=== PATIENT | female | born 2000 | race African-American/Black ===

== ENCOUNTER 2021-12-01 17:33 | Emergency (ER) | payer OTHER, MEDICAID, SELFPAY ==
[2021-12-01] VITALS (32 sets, daily range): BP systolic 109–129; BP diastolic 63–84; PULSE 71–97; RESP 13–20; TEMP 36.4; O2SAT 98–100
--- NOTE | ~2021-12-01 | XR_ITS ---
EXAMINATION: XR chest 1V portable Exam Date/Time: 12/01/2021 18:25 CDT HISTORY: syncope TODAY,HX OF LOW BLOOD PRESSURE Comparison: None available. RESULT: Lines, tubes, and devices: None. Lungs and pleura: Clear. Cardiomediastinal silhouette: Normal cardiomediastinal silhouette. Other: No acute osseous or upper abdominal finding. IMPRESSION: No acute cardiopulmonary process. Reviewed, dictated and finalized at location K.
--- NOTE | ~2021-12-01 | CT_ITS ---
EXAMINATION: CT brain wo con DATE: 12/01/2021 18:54 INDICATION: syncope . TECHNIQUE: Computed tomography (CT) of the head was performed without intravenous contrast. The mA wa s adjusted according to patient size. Iterative reconstruction technique was employed. The dose-lengt h product was 605.33 mGy-cm. COMPARISON: None FINDINGS: No acute intracranial hemorrhage or extra-axial fluid collection. No hydrocephalus, mass, or herniation. No acute ischemic infarct. Unremarkable dural venous sinus attenuation. No acute osseous abnormality. The aerated spaces are clear. IMPRESSION: No acute intracranial process. Reviewed, dictated and finalized at location K.
--- NOTE | 2021-12-01 17:34 | ECG_ITS ---
Measurements Intervals [place] Rate: 93 P: 88 VT: 155 QRS: 83 QRSD: 90 T: 44 QT: 318 QTc: 396 Interpretive Statements SINUS RHYTHM Electronically Signed On 12-02-2021 10:50:45 CDT by Sanjay Melendez M.D.
--- NOTE | 2021-12-01 18:17 | ED.GENADULT ---
HPI - General Adult General Chief complaint: Syncope Stated complaint: fainted at work, hit head on concrete Time Seen by Provider: 12/01/21 17:45 Source: RN notes reviewed History of Present Illness HPI narrative: Patient presents emergency department from work for syncopal episode. Patient states that she was at work at the movie [employer] she states she had been standing for approximately 15 minutes but been standing in the sun and has been getting hot she states she began to feel dizzy and told her coworker and then had a syncopal episode. States she fell to the ground did not hit her head she states following the syncopal episode she does some blurred vision is now improved she denies any recent illness she denies any chest pain shortness of breath abdominal pain nausea or vomiting or any other symptoms Related Data Home Medications Medication Instructions Recorded Confirmed norethindrone 1 mg-ethinyl tablet 12/01/21 estradiol 20 mcg (21)-iron 75 mg (7) tablet ([place] 06/26 (28)) Allergies Allergy/AdvReac Type Severity Reaction Status Date / Time No Known Allergies Allergy Verified 12/01/21 17:39 Review of Systems Review of Systems: Gen.: Denies fevers or chills Eyes: Notes mild blurred vision after syncopal episode now resolved ENT: Denies congestion Respiratory: Denies shortness of breath or cough CV: See HPI GI: Denies abdominal pain nausea, emesis denies Musculoskeletal: Denies back pain or muscle pain Neuro: Denies numbness, tingling, weakness or focal weakness Skin: Denies rash Except as documented, all other systems reviewed and negative [facility] Past Medical History Medical History (Updated 12/01/21 @ 21:57 by Christiano Castro DO) Patient denies significant medical history Social History Social History (Updated 12/01/21 @ 18:18 by Christiano Castro DO) Smoking status: Current every day smoker Exam Narrative: APPEARANCE: No acute distress, nontoxic, resting in bed EYES: EOMI, PERRL HEENT: Normocephalic, atraumatic,TMs clear bilaterally nares patent Neck: Supple no midline chest palpation for range of motion without pain RESPIRATORY: No respiratory distress Clear to auscultation bilaterally with no rhonchi wheezing or rales. CARDIOVASCULAR: Regular rate and rhythm without murmurs rubs or gallops. ABDOMINAL: Soft, nontender, nondistended, no rebound or guarding MUSCULOSKELETAl: Moves all extremities. No clubbing, cyanosis or edema. NEURO: Awake and alert 4. Following commands, speech normal, no focal deficits SKIN:: Warm, dry. No rashes lesions or abrasions PSYCHIATRIC: Normal affect/mood, Course Course Emergency Course: Patient is remained stable throughout stay in ED and has remained on compliance monitor with no arrhythmias noted Discussed with patient results of workup and diagnosis. Discussed need for follow-up with primary care, proper use of medication, and reasons to return to the emergency department. Patient understands and agrees to current treatment plan Vital Signs Vital signs: Vital Signs Temperature 97.6 F 12/01/21 17:35 Pulse Rate 81 12/01/21 17:35 Respiratory Rate 16 12/01/21 17:35 Blood Pressure 112/69 12/01/21 17:35 Pulse Oximetry 98 12/01/21 17:35 Oxygen Delivery Room Air 12/01/21 17:35 Temperature 97.6 F 12/01/21 17:35 Pulse Rate 85 12/01/21 20:16 Respiratory Rate 16 12/01/21 17:35 Blood Pressure 120/67 12/01/21 20:16 Pulse Oximetry 100 12/01/21 18:49 Oxygen Delivery Room Air 12/01/21 18:49 Medical Decision Making MDM Narrative Medical decision making narrative: Patient's episode of syncope is felt due to high risk cause. Syncopal episode was brief and patient is now back to normal mental status. EKG is reviewed without high-risk changes for syncope: There are no signs of prolonged QT or Brugada syndrome. Patient ambulates with a steady gait and is felt to be a reasonable candidate for further ev
[2021-12-01 18:29] LABS: Basophils Percent Auto 0.6 % (0.2-1.2); Eosinophils Percent Auto 0.4 % (0-4.4); Hematocrit 39.7 % (37.0-47.0); Hemoglobin 13.2 g/dL (12.0-15.0); Immature Granulocyte Absolute 0.01 K/mm3 (0.00-0.031); Immature Granulocyte Percent A 0.2 % (0-0.5); Lymphocytes Absolute Auto 0.99 K/mm3 (0.9-3.2); Lymphocytes Percent Auto 20.9 % (18.3-44.2); Mean Corpuscular HGB Conc 33.2 g/dl (32-36); Mean Corpuscular Hemoglobin 30.7 pg (26-34); Mean Corpuscular Volume 92.3 fl (80-100); Mean Platelet Volume 10.3 fl (7.4-10.4); Monocytes Absolute Auto 0.4 K/mm3 (0.1-0.6); Monocytes Percent Auto 7.4 % (2.6-8.5); Neutrophils Absolute Auto 3.3 K/mm3 (1.3-6.7); Neutrophils Percent Auto 70.5 % (45.5-73.1); Platelet Count Result 285 k/mm3 (150-375); Red Cell Distribution Width 12.1 % (11.5-14.5); White Blood Count 4.7 K/mm3 (4.5-10.0)
[2021-12-01 18:40] LABS: Alanine Aminotransferase 22 U/L (6-35); Albumin Level 4.5 g/dL (3.5-5.1); Alkaline Phosphatase 43 U/L (38-126); Anion Gap 8 mmol/L (8-16); Aspartate Amino Transferase 29 U/L (14-36); Bilirubin,Total 0.4 mg/dL (0.2-1.3); Blood Urea Nitrogen 16 mg/dL (7-17); Calcium 9.3 mg/dL (8.4-10.2); Carbon Dioxide 24 mmol/L (22-30); Chloride 103 mmol/L (98-107); Estimated CRCL calculation 72 ml/min; Estimated Glomerular Filt Rate > 60; Glucose 119 mg/dL (65-110); Potassium 3.7 mmol/L (3.4-5.0); Sodium 135 mmol/L (137-145)
[2021-12-01] MEDS: SODIUM CHLORIDE 0.9% IV 1,000 ML 999 ML IV CONT ×2 (18:45→19:08)
[2021-12-01 18:51] LABS: Troponin I < 0.012 ng/mL (0.000-0.034)
[2021-12-01 19:32] LABS: Appearance Urine Slightly Cloudy (Clear); Bilirubin Urine Negative (Negative); Blood Urine Negative (Negative); Color Urine Yellow (Yellow); Glucose Urine UA Negative (Negative); Ketones Urine Negative (Negative); Leukocyte Esterase Ur Negative LEU/UL (Negative); Nitrate Urine Negative (Negative); Protein Urine 1+ mg/dL (Negative); Urobilinogen Urine 0.2 mg/dL (<2.0); pH Urine 6.5 (5.0-9.0)
[2021-12-01 19:43] LABS: Add Urine Microscopic? NO; Bacteria Urine Trace /hpf; Mucus Urine Rare /lpf; RBC Urine 0-2 /hpf (0-2); Squamous Epithelial Cell Urine Many /hpf (Few); WBC Urine 0-3 /hpf
[2021-12-01 21:58] LABS: Troponin I 0.015 ng/mL (0.000-0.034)
== END 2021-12-01 22:42 | disposition home or self-care (01) ==
PROVIDERS: Emergency Medicine; Emergency Provider Emergency Medicine
DX: R55 Syncope and collapse (principal); F17.200 Nicotine dependence, unspecified, uncomplicated
CPT/HCPCS: 36415; 70450; 71045; 80053; 81003; 81025; 84484; 85025; 93005; 96360; 96361; 99284; J7030